=== PATIENT | female | born 1940 | race Caucasian/White ===

== ENCOUNTER → 2016-12-10 | Outpatient (REF) | payer MEDICARE ==
[~2016-12-10] MED LIST: ATN25T PO; ATN50T PO; BIOT5TAB PO; CHRO1000 PO; CINN500C14 PO; E400C PO; FURO-125 PO; GARL1TAB PO; LEVO500T80 PO; LEVO50TA6 PO; LEVO75TA4 PO; LEVO75TA6 PO; LEVO88TA4 PO; LSNP10T PO; METR500T17 PO; NIAC500T2 PO; OMG1KC PO; VITA400T9 PO
[2016-12-10 15:55] LABS: BILIRUBIN,URINE Negative (Negative); COLOR,URINE Yellow; GLUCOSE, URINE (UA) Negative (Negative); LEUKOCYTE ESTERASE, URINE 1+ (Negative); PH,URINE 5.5 (5.0 - 8.0); UROBILINOGEN,URINE 0.2 mg/dL (0.2-1.0)
[2016-12-10 15:59] LABS: BASOPHILS % (AUTO) 0 % (0-2); EOSINOPHILS # (AUTO) 0.1 10^3uL; EOSINOPHILS % (AUTO) 3 % (0-4); LYMPHOCYTES # (AUTO) 1.4 X10^3; MEAN CORPUSCULAR HEMOGLOBIN 28.9 PG (26.0-34.0); MEAN CORPUSCULAR HGB CONC 33.8 g/dL (31.0-37.0); MEAN CORPUSCULAR VOLUME 85 FL (80-100); MEAN PLATELET VOLUME 9.4 FL (6.0-9.5); MONOCYTES # (AUTO) 0.5 X10^3; MONOCYTES % (AUTO) 11 % (3-11); NEUTROPHILS # (AUTO) 2.3 X10^3; NEUTROPHILS % (AUTO) 53 % (51-67); PLATELET COUNT 227 10^3uL (150-450); WHITE BLOOD COUNT 4.32 10^3uL (4.0-11.0)
[2016-12-10 16:09] LABS: ANION GAP 10.6 MEQ/L (3-15); CALCULATED IONIZED CALCIUM 4.5 mg/dL (3.8-4.6); TOTAL PROTEIN 7.1 g/dL (6.4-8.5)
[2016-12-10 17:34] LABS: CLARITY,URINE Slightly Cloudy
[2016-12-10 17:35] LABS: RBC,URINE 0-2 /HPF; URINE CENTRIFUGED VOLUME 12 mL
== END ==
LOC: LAB 15:07
PROVIDERS: ATTEND Nurse Practitioner Family
DX: E11.9 Type 2 diabetes mellitus without complications (principal); E78.2 Mixed hyperlipidemia; E03.4 Atrophy of thyroid (acquired); R35.0 Frequency of micturition
CPT/HCPCS: 80053; 80061; 81003; 81015; 82043; 83036; 84443; 85025; 87088